=== PATIENT | female | born 1945 | race Caucasian/White ===

== ENCOUNTER 2021-05-21 09:44 | Emergency (ER) | payer OTHER ==
[2021-05-21 09:50] VITALS: TEMP 97.9
[2021-05-21] MEDS ORDERED: SODIUM CHLORIDE 0.9% 50 ML IVPB ONE (10:15)
[2021-05-21 10:29] VITALS: RESP 18
[2021-05-21] MEDS ORDERED: CASIRIVIMAB (REGN10933) (EUA) 600 MG, IMDEVIMAB (REGN10987) (EUA) 600 MG in SODIUM CHLO... IVPB ONE (10:30)
--- NOTE | 2021-05-21 10:38 | ED ---
Recheck HPI - General Chief Complaint: Recheck/Abnormal Lab/Rx Stated Complaint: Covid+/Wants Antibodies Time Seen by Provider: 05/21/21 09:54 Source: patient, RN notes reviewed Mode of arrival: ambulatory Limitations: no limitations - History of Present Illness Initial Comments: Patient is a 76-year-old female that presents to the emergency department complaining of a Covid positive home test. She notes that her was recently admitted in the hospital for Covid. She notes that she started symptoms last night. She notes that she came in for monoclonal antibodies. She was otherwise well-appearing in no apparent distress or pain. She did have a dry cough on exam. She denied chest pain shortness breath headache nausea vomiting diarrhea constipation fever fatigue chills. - Related Data Allergies Allergy/AdvReac Type Severity Reaction Status Date / Time No Known Allergies Allergy Verified 05/21/21 09:50 Review of Systems ROS Statement: Those systems with pertinent positive or pertinent negative responses have been documented in the HPI. ROS Other: All systems not noted in ROS Statement are negative. Past Medical History Past Medical History: GERD/Reflux History of Any Multi-Drug Resistant Organisms: None Reported Past Surgical History: Breast Surgery, Orthopedic Surgery Past Psychological History: No Psychological Hx Reported Smoking Status: Never smoker Past Alcohol Use History: None Reported Past Drug Use History: None Reported General Exam Limitations: no limitations General appearance: alert, in no apparent distress Head exam: Present: atraumatic, normocephalic, normal inspection Eye exam: Present: normal appearance, PERRL, EOMI. Absent: scleral icterus, conjunctival injection, periorbital swelling ENT exam: Present: normal exam, mucous membranes moist Neck exam: Present: normal inspection. Absent: tenderness, lymphadenopathy Respiratory exam: Present: normal lung sounds bilaterally. Absent: respiratory distress, wheezes, rales, rhonchi, stridor Cardiovascular Exam: Present: regular rate, normal rhythm, normal heart sounds. Absent: systolic murmur, diastolic murmur, rubs, gallop, clicks Extremities exam: Present: normal inspection, full ROM, normal capillary refill. Absent: tenderness, pedal edema, joint swelling, calf tenderness Neurological exam: Present: alert, oriented X3 Psychiatric exam: Present: normal affect, normal mood Skin exam: Present: warm, dry, intact, normal color. Absent: rash Course Vital Signs 05/21/21 05/21/21 09:46 10:27 Temperature 97.9 F Pulse Rate 102 H Respiratory 16 18 Rate Blood Pressure 142/84 O2 Sat by Pulse 100 Oximetry Medical Decision Making - Medical Decision Making 76-year-old female complaining of Covid positive home test. Covid test, monoclonal antibodies ordered. Patient does meet criteria for monoclonal antibodies. She is better with discharge home after infusion. Case discussed with Dr. Jenkins, patient discharge home. Disposition Clinical Impression: COVID Disposition: HOME SELF-CARE Condition: Stable Instructions (If sedation given, give patient instructions): Coronavirus Disease 2019 (COVID-19) Additional Instructions: Please return to the Emergency Department if symptoms worsen or any other concerns. Follow-up with primary care 1-2 days. Quarantine per CDC guidelines. Use Tylenol Motrin as needed for any fevers aches and pains. Rest. Increase fluids. Is patient prescribed a controlled substance at d/c from ED?: No Referrals: Kee Toledo MD [Primary Care Provider] - 1-2 days Time of Disposition: 10:37
[2021-05-21 12:20] VITALS: BP 132/82; PULSE 87
== END 2021-05-21 12:20 | disposition home or self-care (01) ==
LOC: EC 09:44
DX: U07.1 COVID-19 (principal); K21.9 Gastro-esophageal reflux disease without esophagitis
CPT/HCPCS: 99283; 87635; 96360; Q0244